=== PATIENT | male | born 1975 | race Caucasian/White ===

== ENCOUNTER 2024-06-03 07:14 | Emergency (ER) | payer OTHER, SELFPAY ==
[2024-06-03 07:18] VITALS: BP 123/80
[2024-06-03 09:00] VITALS: BP 138/76
--- NOTE | 2024-06-03 09:15 | ED.MUSCINJ ---
HPI-Injury
General
Chief Complaint: Musculo-Skeletal Complaint
Source: patient
Exam Limitations: none
Time Seen by Provider: 06/03/24 07:41
History of Present Illness-Injury
Initial Injury comments:
48-year-old male presents complaining of left knee pain starting last evening. He was playing ice hockey and tweaked his knee was able to continue playing but this morning he had more disc to the posterior lateral aspect of the knee. No fever.
Phy Exam
Physical Exam
Physical Exam:
General: Well-appearing male no acute respiratory distress
Musculoskeletal exam: Left knee without significant effusion. He is tender over the posterior lateral area of the knee. The ligaments are stable. He is able to straight leg raise. Motion goes from straight to about 90 degrees.
Skin is without erythema
Injury Course
Orders/Labs/Results
Orders:
Orders
06/03/24 07:48
CR Knee - Left 4 Or More View* Urgent
Comment:
Reason For Exam: pain
06/03/24 09:07
Knee Immobilizer Left-Treatmen ONCE
MDM/Problems Addressed
Differential Diagnosis Includes:
Left knee pain likely sprain or strain. X-ray of ordered and reviewed to evaluate for fracture. There is no fracture or bony abnormality. No evidence of septic arthritis. Patient placed in knee immobilizer will be advised follow-up with [facility].
Stable for discharge
*Critical Care Note
Total Time (30-74mins, 75-104mins- exclusive of procedures): Not Applicable
ED Attending Note
-
Portions of this chart may have been created with voice recognition software.� Occasional wrong word or��sound alike� substitutions may have occurred due to the inherent limitations of voice recognition software.
Discharge Plan
Departure
Patient Disposition: Home (Routine Discharge)
Date of Disposition: 06/03/24
Time of Disposition: 09:19
Patient with high blood pressure during this ER visit?: No
Discharge Problem:
Knee sprain
Instructions: Muscle and Bone Pain (DC)
Prescriptions:
No Action
lamotrigine [Lamictal] 200 MG tablet
400 mg PO HS
lisdexamfetamine [Vyvanse] 70 MG capsule
70 mg PO DAILY AT 0700
multivitamin 1 EACH tablet
1 ea PO DAILY AT 0700
ascorbic acid (vitamin C) [Vitamin C] 500 MG tablet
500 mg PO DAILY
cholecalciferol (vitamin D3) 125 MCG tablet,disintegrating
125 mcg PO DAILY
acetaminophen-codeine 1 TABLET tablet
1 - 2 tab PO Q4HPRN PRN (Reason: Mod-severe pain) Qty: 30 0RF
cefuroxime axetil 500 MG tablet
500 mg PO BID 7 Days Qty: 14 0RF
Referrals:
Miguel Ángel Kimball Jr., DO [Family Provider] -
Edvin Montelongo MD [Active] -
Activity Restrictions/Additional Instructions:
Rest. Use ibuprofen for pain. Use brace for support. Follow-up with orthopedics for further evaluation
Interventions
Interventions:
*Risk Screen - Suicide Last Done: 06/03/24 07:18
*General Assessment Last Done: 06/03/24 07:18
*Neglect/Abuse Screening Last Done: 06/03/24 07:18
ED- Fall Risk Assessment Last Done: 06/03/24 07:44
*ED COVID-19 Vaccine History Last Done: 06/03/24 07:42
ED-Musculoskeletal Assessment Last Done: 06/03/24 07:44
Discharge Date and Time
Print Language: HEBREW
== END 2024-06-03 09:45 | disposition home or self-care (01) ==
LOC: EMR 07:14
PROVIDERS: EMERGENCY PHYSICIAN Student in an Organized Health Care Education/Training Program; FAMILY PHYSICIAN Family Medicine
DX: S83.92XA Sprain of unspecified site of left knee, initial encounter (principal); X50.1XXA Overexertion from prolonged static or awkward postures, initial encounter; Y93.22 Activity, ice hockey; Y92.330 Ice skating rink (indoor) (outdoor) as the place of occurrence of the external cause
CPT/HCPCS: 99283; 29505; 73564

== ENCOUNTER → 2025-05-30 12:19 | Outpatient (REF) | payer OTHER, SELFPAY | LOC: RAD 12:19 | PROVIDERS: ATTENDING PHYSICIAN Family Medicine | DX: M25.532 Pain in left wrist (principal); M79.671 Pain in right foot | CPT/HCPCS: 73110; 73630 ==